=== PATIENT | male | born 1985 | race Caucasian/White ===

== ENCOUNTER 2017-08-20 20:30 | Outpatient (CLI) | payer OTHER | END 2017-08-20 20:31 | disposition home or self-care (01) | LOC: SLEEPLAB 20:30 | PROVIDERS: ATTEND Family Medicine | DX: G47.30 Sleep apnea, unspecified (principal); G47.33 Obstructive sleep apnea (adult) (pediatric) | CPT/HCPCS: 95811 ==

== ENCOUNTER 2017-09-22 14:50 | Outpatient (CLI) | payer OTHER ==
--- NOTE | 2017-09-22 16:38 | RAD ---
TWO VIEWS CHEST: Date: 09-22-17 Comparison: None. History: Dyspnea. FINDINGS: There is no pneumothorax, pleural fluid, focal consolidation, or alveolar edema. Heart and mediastina l contours are within normal limits. IMPRESSION: No acute findings. POS: [facility]
== END 2017-09-22 14:51 | disposition home or self-care (01) ==
LOC: RAD 14:50
PROVIDERS: ATTEND Internal Medicine Pulmonary Disease
DX: R06.00 Dyspnea, unspecified (principal)
CPT/HCPCS: 71046

== ENCOUNTER 2017-09-24 14:17 | Outpatient (CLI) | payer OTHER | END 2017-09-24 14:18 | disposition home or self-care (01) | LOC: BICRAD 14:17 | PROVIDERS: ATTEND Internal Medicine Rheumatology | DX: M06.4 Inflammatory polyarthropathy (principal) | CPT/HCPCS: 72100 ==

== ENCOUNTER 2017-10-20 07:41 | Outpatient (CLI) | payer OTHER | END 2017-10-20 07:42 | disposition home or self-care (01) | LOC: BICMRI 07:41 | PROVIDERS: ATTEND Internal Medicine Rheumatology | DX: M45.0 Ankylosing spondylitis of multiple sites in spine (principal) | CPT/HCPCS: 72195; 72197 ==

== ENCOUNTER 2019-12-05 14:38 | Outpatient (CLI) | payer OTHER ==
--- NOTE | 2019-12-05 15:24 | RAD ---
LUMBAR SPINE 2 VIEWS: Date: 12/05/2019 HISTORY: Disability exam, low back pain. FINDINGS/IMPRESSION: There is mild anterior wedge compression at the superior end plate of L2 vertebral body. No subluxati on is seen. The mild compression fracture of L2 vertebral body is new since 09/05/2018. POS: [facility]
== END 2019-12-05 14:39 | disposition home or self-care (01) ==
LOC: BICRAD 14:38
PROVIDERS: ATTEND Internal Medicine
DX: Z02.71 Encounter for disability determination (principal); S32.029A Unspecified fracture of second lumbar vertebra, initial encounter for closed fracture
CPT/HCPCS: 72100